=== PATIENT | female | born 1990 | race African-American/Black ===

== ENCOUNTER 2023-11-13 11:13 | Emergency (ER) | payer SELFPAY ==
[2023-11-13 12:42] LABS: Absolute Basophils 0.1 K/uL (0-0.5); Absolute Eosinophils 0.3 K/uL (0-0.5); Absolute Lymphocytes (CBC) 4.7 K/uL (0.7-4.9); Absolute Monocytes 0.6 K/uL (0.1-1.3); Absolute Neutrophil 4.7 K/uL (1.8-8.0); Basophils % 0.7 % (0-1.3); Hematocrit 39.2 % (36.0-45.0); Hemoglobin 13.2 g/dL (12.0-15.0); Lymphocytes % 45.4 % (15.3-44.8); MCH 31.3 pg (27.0-35.0); MCHC 33.6 g/dL (32.0-36.0); MCV 93.2 fL (80-100); MPV 7.5 fL (7.6-11.3); Monocytes % 5.7 % (3.3-12.3); Neutrophils % 45.2 % (41.7-73.7); Platelets 210 thou/uL (152-406); RBC Red Blood Cell Count 4.21 M/uL (3.86-4.86); Red Cell Distribution Width 14.8 % (12.1-15.2)
[2023-11-13 12:51] LABS: ALT/SGPT 15 U/L (13-56); Albumin 3.8 g/dL (3.4-5.0); Albumin/Globulin Ratio 1.1 (1.1-1.8); Alkaline Phosphatase 69 U/L (45-117); Anion Gap 3.9 mEq/L (5.0-15.0); BUN Blood Urea Nitrogen 10 mg/dL (7-18); Bicarbonate 28 mEq/L (21-32); Bilirubin Total 0.8 mg/dL (0.2-1.0); Globulin 3.5 g/dL (2.3-3.5); Glomerular Filtration Rate 97 ml/min (=/>90); Glucose Level 91 mg/dL (74-106); Potassium 3.9 mEq/L (3.5-5.1); Protein, Total 7.3 g/dL (6.4-8.2); Sodium Level 138 mEq/L (136-145)
[2023-11-13 12:54] LABS: AST/SGOT < 10 U/L (15-37)
[2023-11-13 13:08] LABS: Specific Gravity 1.033 (1.005-1.030); Specific Gravity > 1.030 (1.005-1.030); Sqamous Epithelial <5 /HPF (None Seen); Urine Bacteria <20 /HPF (<20); Urine Bilirubin NEGATIVE (Negative); Urine Blood Negative (Negative); Urine Clarity Clear (Clear); Urine Color Yellow (Yellow); Urine Culture Reflex Order NOT NEEDED; Urine Glucose NEGATIVE (Negative); Urine Ketones NEGATIVE (Negative); Urine Microscopic Reflex YN ORDER UMIC; Urine Mucus 2+ /HPF (None Seen); Urine Nitrite NEGATIVE (Negative); Urine Protein TRACE (Negative); Urine Urobilinogen 1+ (Normal); Urine WBC <5 /HPF (<5); Urine pH 6.5 (5.0-7.0)
--- NOTE | 2023-11-13 13:19 | RAD REPORT ---
EXAM DESCRIPTION: US - Extremity Nonvascular Limited - 11/13/2023 12:21 pm CLINICAL HISTORY: Pain;Swelling COMPARISON: No comparisons TECHNIQUE: Sonographic grayscale and color flow images of the right breast were obtained. FINDINGS: Heterogeneous dense fibroglandular tissue in the evaluated retroareolar region. Numerous c ystic lesions are present, including a complex 5 mm cyst most superiorly, and 2 adjacent anechoic cys ts, largest measuring 9 mm. No suspicious masses or abnormal shadowing. IMPRESSION: Dense stroma and some cysts, may represent sequelae of fibrocystic disease. No focal inf lammatory process is appreciated. Close clinical follow-up is recommended. BI-RADS: 2, benign findings. ResultCode: B
--- NOTE | 2023-11-13 14:23 | ER ---
Nurse's Notes [facility] Radha Name: August Age: 32 yrs Sex: Female : 1990 Arrival Date: 11/13/2023 Time: 11:13 Bed 9 Private MD: Diagnosis: Disorder of breast, unspecified-LUMP Presentation: 11/12 11:17 Chief complaint: Patient states: "I've had a lump under my right breast for the past mb9 5-6 years. I've had it drained and it got infected years ago. It's painful.". Coronavirus screen: Vaccine status: Patient reports receiving the 2nd dose of the covid vaccine. Ebola Screen: No symptoms or risks identified at this time. Initial Sepsis Screen: Does the patient meet any 2 criteria? No. Patient's initial sepsis screen is negative. Does the patient have a suspected source of infection? No. Patient's initial sepsis screen is negative. Risk Assessment: Do you want to hurt yourself or someone else? Patient reports no desire to harm self or others. Onset of symptoms was 2019. 11:17 Method Of Arrival: Ambulatory 9 11:17 Acuity: NIALL 4 mb9 Triage Assessment: 11:20 General: Appears in no apparent distress. Behavior is calm, cooperative. Pain: mb9 Complains of pain in right breast. EENT: No signs and/or symptoms were reported regarding the EENT system. Neuro: Wong Agitation-Sedation Scale (RASS): 0 - Alert and Calm Level of Consciousness is awake, alert, obeys commands, Oriented to person, place, time, situation, Appropriate for age. Cardiovascular: Patient's skin is warm and dry. Respiratory: Airway is patent Respiratory effort is even, unlabored, Respiratory pattern is regular, symmetrical. GI: No signs and/or symptoms were reported involving the gastrointestinal system. : No signs and/or symptoms were reported regarding the genitourinary system. Derm: Skin is pink, warm \\T\\ dry. Musculoskeletal: Range of motion: intact in all extremities. 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 - Infectious Disease History:: Denies. - Social history:: Smoking status: Patient denies any tobacco usage or history of. - Family history:: not pertinent. Screenin:[facility] ED Fall Risk Assessment (Adult) History of falling in the last 3 months, ll1 including since admission No falls in past 3 months (0 pts) Confusion or Disorientation No (0 pts) Intoxicated or Sedated No (0 pts) Impaired Gait No (0 pts) Mobility Assist Device Used No (0 pt) Altered Elimination No (0 pt) Score/Fall Risk Level 0 - 2 = Low Risk Maintained a safe environment, Hourly rounding (assess needs \\T\\ fall precautionary measures) done. Abuse screen: Denies threats or abuse. Nutritional screening: No deficits noted. Tuberculosis screening: No symptoms or risk factors identified. Assessment: 11:38 Reassessment: No changes from previously documented assessment. Patient and/or family ll1 updated on plan of care and expected duration. Pain level reassessed. To US via wheelchair. 12:46 Reassessment: Patient and/or family updated on plan of care and expected duration. Pain rs5 level reassessed. Patient is alert, oriented x 3, equal unlabored respirations, skin warm/dry/pink. 13:55 Reassessment: Patient and/or family updated on plan of care and expected duration. Pain rs5 level reassessed. Patient is alert, oriented x 3, equal unlabored respirations, skin warm/dry/pink. Patient states feeling better. Patient states symptoms have improved. 14:34 Reassessment: No changes from previously documented assessment. rs5 Vital Signs: 11:17 BP 107 / 75; Pulse 88; Resp 16; Temp 97.5; Pulse Ox 100% on R/A; Weight 52.16 kg; mb9 Height 5 ft. 2 in. ; Pain 8/10; 12:46 BP 110 / 77; Pulse 77; Resp 17; Pulse Ox 99% on R/A; rs5 14:34 BP 107 / 74; Pulse 73; Resp 17; Pulse Ox 99% on R/A; rs5 11:17 Body Mass Index 21.03 (52.16 kg, 157.48 cm) [facility] 11:17 Pain Scale: Adult mb9 ED Course: 11:14 Patient arrived in ED. mr 11:14 Aureliano Dubose MD is Attending Physician. hank 11:19 Triage completed. mb9 11:19 Arm band placed on. mb9 11:39 Patient has correct armband on for positive identification. Bed in low position. Call ll1 light in reach. Cardiac monitoring not applicable on this patient. 12:14 Mauricio Blue, RN is Primary Nurse. rs5 12:14 US Extrmty Nonvasular Limited: right breast In Process Unspecified. EDMS 12:18 Inserted saline lock: 22 gauge in right antecubital area, using aseptic technique. rs5 12:18 No provider procedures requiring assistance completed. rs5 14:21 George Borden MD is Referral Physician. hank 14:35 IV discontinued, intact, bleeding controlled, No redness/swelling at site. Pressure rs5 dressing applied. Administered Medications: 12:20 Drug: NS 0.9% IV 1000 ml IV at 1 bolus Per protocol; 1000 mL bolus Route: IV; Rate: 1 rs5 bolus; Site: right antecubital; 12:47 Follow up: Response: No adverse reaction rs5 13:31 Follow up: IV Status: Completed infusion; IV Intake: 999ml rs5 Medication: 12:46 VIS not applicable for this client. rs5 Intake: 13:31 IV: 999ml; Total: 999ml. rs5 Outcome: 14:21 Discharge ordered by . hank 14:35 Discharged to home ambulatory, rs5 14:35 Condition: stable 14:35 Discharge instructions given to patient, family, Instructed on discharge instructions, follow up and referral plans. no driving heavy equipment, Demonstrated understanding of instructions, follow-up care, medications, Prescriptions given X 2, 14:35 Patient left the ED. rs5 Signatures: Dispatcher [employer] EDAZ Aureliano Dubose MD MD cha Rivera, Mary, Reg Reg mr ElizondoZaire RN RN ll1 Jenni Dickey RN RN mb9 Mauricio Blue, AURORA RN rs5
--- NOTE | 2023-11-13 14:23 | EDPHYS ---
Physician Documentation [facility] Name: August Age: 32 yrs Sex: Female : 1990 Arrival Date: 11/13/2023 Time: 11:13 Bed 9 Private MD: RADHA Physician Aureliano Dubose HPI: 11/12 14:06 This 32 yrs old Black Female presents to ER via Ambulatory with complaints of Breast hank Lump. 14:06 the patient presents with a swollen area of the right breast. Description: The affected hank area is small, confluent. Onset: The symptoms/episode began/occurred 60 day(s) ago. Possible cause(s): unknown. Associated signs and symptoms: The patient has no apparent associated signs or symptoms. Severity of symptoms: At their worst the symptoms were mild, in the emergency department the symptoms are unchanged. The patient has experienced similar episodes in the past, multiple times. 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 - Infectious Disease History:: Denies. - Social history:: Smoking status: Patient denies any tobacco usage or history of. - Family history:: not pertinent. ROS: 14:06 Constitutional: Negative for fever, chills, and weight loss, Eyes: Negative for injury, hank pain, redness, and discharge, ENT: Negative for injury, pain, and discharge, Neck: Negative for injury, pain, and swelling, Cardiovascular: Negative for chest pain, palpitations, and edema, Respiratory: Negative for shortness of breath, cough, wheezing, and pleuritic chest pain, Abdomen/GI: Negative for abdominal pain, nausea, vomiting, diarrhea, and constipation, Back: Negative for injury and pain, : Negative for injury, bleeding, discharge, and swelling, MS/Extremity: Negative for injury and deformity, Neuro: Negative for headache, weakness, numbness, tingling, and seizure, Psych: Negative for depression, anxiety, suicide ideation, homicidal ideation, and hallucinations, Allergy/Immunology: Negative for hives, rash, and allergies, Endocrine: Negative for neck swelling, polydipsia, polyuria, polyphagia, and marked weight changes, Hematologic/Lymphatic: Negative for swollen nodes, abnormal bleeding, and unusual bruising, 14:06 Skin: Positive for swelling, of the right breast, Exam: 14:06 Constitutional: This is a well developed, well nourished patient who is awake, alert, hank and in no acute distress. Head/Face: Normocephalic, atraumatic. Eyes: Pupils equal round and reactive to light, extra-ocular motions intact. Lids and lashes normal. Conjunctiva and sclera are non-icteric and not injected. Cornea within normal limits. Periorbital areas with no swelling, redness, or edema. ENT: Nares patent. No nasal discharge, no septal abnormalities noted. Tympanic membranes are normal and external auditory canals are clear. Oropharynx with no redness, swelling, or masses, exudates, or evidence of obstruction, uvula midline. Mucous membranes moist. Chest/axilla: Normal chest wall appearance and motion. Nontender with no deformity. No lesions are appreciated. Cardiovascular: Regular rate and rhythm with a normal S1 and S2. No gallops, murmurs, or rubs. Normal PMI, no JVD. No pulse deficits. Respiratory: Lungs have equal breath sounds bilaterally, clear to auscultation and percussion. No rales, rhonchi or wheezes noted. No increased work of breathing, no retractions or nasal flaring. Abdomen/GI: Soft, non-tender, with normal bowel sounds. No distension or tympany. No guarding or rebound. No evidence of tenderness throughout. Back: No spinal tenderness. No costovertebral tenderness. Full range of motion. Skin: Warm, dry with normal turgor. Normal color with no rashes, no lesions, and no evidence of cellulitis. MS/ Extremity: Pulses equal, no cyanosis. Neurovascular intact. Full, normal range of motion. Neuro: Awake and alert, GCS 15, oriented to person, place, time, and situation. Cranial nerves II-XII grossly intact. Motor strength 5/5 in all extremities. Sensory grossly intact. Cerebellar exam normal. Normal gait. Psych: Awake, alert, with orientation to person, place and time. Behavior, mood, and affect are within normal limits. 14:06 Chest/axilla: Inspection: normal, Palpation: tenderness, that is mild, of the right breast, Axilla: are normal, Breasts: mass(es), that is small, in the right breast, that is tender, that is freely movable, nipple discharge, is not appreciated, rash, is not appreciated, swelling, that is mild tenderness, that is mild Lymph nodes: lymphadenopathy is not appreciated, Vital Signs: 11:17 BP 107 / 75; Pulse 88; Resp 16; Temp 97.5; Pulse Ox 100% on R/A; Weight 52.16 kg; mb9 Height 5 ft. 2 in. ; Pain 8/10; 12:46 BP 110 / 77; Pulse 77; Resp 17; Pulse Ox 99% on R/A; rs5 14:34 BP 107 / 74; Pulse 73; Resp 17; Pulse Ox 99% on R/A; rs5 11:17 Body Mass Index 21.03 (52.16 kg, 157.48 cm) mb9 11:17 Pain Scale: Adult mb9 MDM: 11:15 Patient medically screened. [facility] 14:09 Differential diagnosis: abscess, allergic reaction, cellulitis. Data reviewed: vital [facility] signs, nurses notes, lab test result(s), radiologic studies, ultrasound. Consideration of Admission/Observation Patient was admitted/placed on observation. I considered the following discharge prescriptions or medication management in the emergency department Medications were administered in the Emergency Department. See MAR. Independent interpretation of the following test(s) in the Emergency Department Radiology Department Ultrasound: My interpretation is BREAST USG. Test considered but Not performed: MRI: NO MRI. Historians other than the Patient: PT WELL INFORMED. Care significantly affected by the following chronic conditions: SEIZURE, INVERTED NIPPLE. 11/12 11:31 Order name: CBC with Diff; Complete Time: 13:41 [facility] 11/12 11:31 Order name: Comprehensive Metabolic Panel; Complete Time: 13:41 [facility] 11/12 11:31 Order name: Urinalysis w/ reflexes; Complete Time: 13:41 [facility] 11/12 11:31 Order name: PREGU; Complete Time: 13:41 [facility] 11/12 11:31 Order name: US Extrmty Nonvasular Limited: right breast; Complete Time: 13:41 [facility] Administered Medications: 12:20 Drug: NS 0.9% IV 1000 ml IV at 1 bolus Per protocol; 1000 mL bolus Route: IV; Rate: 1 rs5 bolus; Site: right antecubital; 12:47 Follow up: Response: No adverse reaction rs5 13:31 Follow up: IV Status: Completed infusion; IV Intake: 999ml rs5 Disposition Summary: 11/13/23 14:21 Discharge Ordered Notes: Location: Home hank Problem: new hank Symptoms: have improved hank Condition: Stable hank Diagnosis - Disorder of breast, unspecified - LUMP hank Followup: hank - With: Private Physician - When: 2 - 3 days - Reason: Recheck today's complaints, Continuance of care, Re-evaluation by your physician Followup: hank - With: George Borden MD - When: 2 - 3 days - Reason: Recheck today's complaints, Re-evaluation by your physician Discharge Instructions: - Discharge Summary Sheet hank - Breast Cyst [facility] Forms: - Medication Reconciliation Form hank - Antibiotic Education hank - Prescription Opioid Use hank - Patient Portal Instructions [facility] - Leadership Thank You Letter [facility] Prescriptions: - acetaminophen-codeine 300-30 mg Oral tablet - take 2 tablet ORAL route every 6 hours PRN PAIN; 18 tablet; Refills: 0, Product [facility] Selection Permitted - Motrin IB 200 mg Oral tablet - take 2 tablet ORAL route every 6 hours As needed as needed with food; 30 hank tablet; Refills: 0, Product Selection Permitted Signatures: Dispatcher [employer] EDAureliano Riojas MD MD cha Lewis, Lynsay, RN RN ll1 Jenni Dickey, RN RN mb9 Mauricio Blue, RN RN rs5 Corrections: (The following items were deleted from the chart) 11:31 11:31 CBC+H.LAB.BRZ ordered. EDMS EDMS 11:31 11:31 COMPREHENSIVE METABOLIC PANEL+C.LAB.BRZ ordered. EDMS EDMS 11:31 11:31 Urinalysis+U.LAB.BRZ ordered. EDMS EDMS 11:31 11:31 Test, Urine+UC.LAB.BRZ ordered. EDMS EDMS 11:31 11:31 Extrmty Nonvasular Limited+US.RAD.BRZ ordered. EDMS EDMS
[2023-11-13 14:41] VITALS: TEMP 97.5; O2SAT 99
[2023-11-13 15:01] VITALS: BP 107/74
== END 2023-11-13 14:35 | disposition home or self-care (01) ==
LOC: ER 11:13
DX: N63.10 Unspecified lump in the right breast, unspecified quadrant (principal)
CPT/HCPCS: 36415; 76882; 80053; 81001; 81025; 85025

== ENCOUNTER 2024-08-16 18:54 | Emergency (ER) | payer SELFPAY ==
[2024-08-16 20:43] LABS: Absolute Basophils 0.1 K/uL (0-0.5); Absolute Eosinophils 0.3 K/uL (0-0.5); Absolute Lymphocytes (CBC) 4.4 K/uL (0.7-4.9); Absolute Monocytes 0.5 K/uL (0.1-1.3); Absolute Neutrophil 4.1 K/uL (1.8-8.0); Basophils % 0.9 % (0-1.3); Eosinophils % 3.6 % (0-4.4); Hematocrit 39.1 % (36.0-45.0); Hemoglobin 13.1 g/dL (12.0-15.0); Lymphocytes % 46.6 % (15.3-44.8); MCH 30.9 pg (27.0-35.0); MCHC 33.4 g/dL (32.0-36.0); MCV 92.6 fL (80-100); MPV 7.6 fL (7.6-11.3); Monocytes % 5.5 % (3.3-12.3); Neutrophils % 43.4 % (41.7-73.7); Nucleated Red Blood Cells % 0.2 % (0-0); Platelets 227 thou/uL (152-406); RBC Red Blood Cell Count 4.22 M/uL (3.86-4.86); Red Cell Distribution Width 14.6 % (12.1-15.2)
[2024-08-16 21:00] LABS: AST/SGOT 14 U/L (15-37); Albumin 3.9 g/dL (3.4-5.0); Albumin/Globulin Ratio 1.1 (1.1-1.8); Alkaline Phosphatase 70 U/L (45-117); Anion Gap 7.5 mEq/L (5.0-15.0); BUN Blood Urea Nitrogen 16 mg/dL (7-18); Bicarbonate 24 mEq/L (21-32); Bilirubin Total 0.9 mg/dL (0.2-1.0); Globulin 3.4 g/dL (2.3-3.5); Glomerular Filtration Rate 85 ml/min (=/>90); Glucose Level 116 mg/dL (74-106); Potassium 3.5 mEq/L (3.5-5.1); Protein, Total 7.3 g/dL (6.4-8.2); Sodium Level 137 mEq/L (136-145)
[2024-08-16 21:01] LABS: ALT/SGPT < 14 U/L (13-56)
[2024-08-16 21:20] LABS: Band Neutrophils 1 % (0-1); Differential Total Cells Count 100; Eosinophils 5 % (0-3); Lymphocytes 40 % (15-42); Monocytes 1 % (0-10); Reactive Lymphocytes 9 %; Segmented Neutrophils 44 % (40-80)
[2024-08-16 21:21] LABS: Blood Morphology Comment NOT SEEN (NOT SEEN); Platelet Estimate ADEQ
--- NOTE | 2024-08-17 01:16 | ER ---
Nurse's Notes [facility] Mariza Name: Marissa Dumont Age: 33 yrs Sex: Female : 1990 Arrival Date: 08/16/2024 Time: 18:54 Bed 9 Private MD: Diagnosis: Disorder of breast, unspecified Presentation: 08/16 19:09 Chief complaint: Patient states: LUMPS TO BILATERAL BREASTS. PT STATES THAT SHE cm10 COMPLETED ANTIBIOTICS AND HAS DEVELOPED MORE LUMPS. Coronavirus screen: Client denies travel out of the [place] in the last 14 days. Ebola Screen: Patient denies travel to an Ebola-affected area in the 21 days before illness onset. No symptoms or risks identified at this time. Initial Sepsis Screen: Does the patient meet any 2 criteria? HR > 90 bpm. Does the patient have a suspected source of infection? No. Patient's initial sepsis screen is negative. Risk Assessment: Do you want to hurt yourself or someone else? Patient reports no desire to harm self or others. Onset of symptoms was August 16, 2024. 19:09 Method Of Arrival: Ambulatory cm10 19:09 Acuity: NIALL 3 cm10 Triage Assessment: 19:12 General: Appears in no apparent distress. uncomfortable, Behavior is calm, cooperative. cm10 Pain: Complains of pain in right breast and left breast Pain currently is 8 out of 10 on a pain scale. Neuro: No deficits noted. Level of Consciousness is awake, alert, obeys commands, Oriented to person, place, time, situation, Appropriate for age. Respiratory: No deficits noted. Airway is patent Respiratory effort is even, unlabored, Respiratory pattern is regular, symmetrical. Historical: - Allergies: 19:11 Amoxicillin; cm10 - PMHx: 19:11 inverted nipple; Seizure; cm10 - PSHx: 19:11 3 heart surgeries; Cyst removal; cm10 - Immunization history:: Adult Immunizations up to date. - Infectious Disease History:: Denies. - Social history:: Smoking status: Reported history of juuling and/or vaping. Screenin:58 [facility] ED Fall Risk Assessment (Adult) History of falling in the last 3 months, le1 including since admission No falls in past 3 months (0 pts) Confusion or Disorientation No (0 pts) Intoxicated or Sedated No (0 pts) Impaired Gait No (0 pts) Mobility Assist Device Used No (0 pt) Altered Elimination No (0 pt) Score/Fall Risk Level 0 - 2 = Low Risk Oriented to surroundings, Maintained a safe environment, Educated pt \T\ family on fall prevention, incl call for assistance when getting out of bed, Assessed \T\ reinforced patient's understanding of fall precautions, Hourly rounding (assess needs \T\ fall precautionary measures) done, Used ambulatory aids as needed (educated on \T\ assisted with). Abuse screen: Denies threats or abuse. Denies injuries from another. Nutritional screening: No deficits noted. Tuberculosis screening: No symptoms or risk factors identified. Assessment: 20:58 General: Appears in no apparent distress. comfortable. Pain: Complains of pain in le1 chest. Neuro: No deficits noted. Cardiovascular: No deficits noted. Respiratory: No deficits noted. GI: No deficits noted. : No deficits noted. EENT: No deficits noted. Derm: No deficits noted. Musculoskeletal: No deficits noted. 08/17 01:52 Reassessment: Patient appears in no apparent distress at this time. No changes from lg3 previously documented assessment. Patient and/or family updated on plan of care and expected duration. Pain level reassessed. Patient is alert, oriented x 3, equal unlabored respirations, skin warm/dry/pink. Vital Signs: 08/16 19:09 BP 124 / 86; Pulse 91; Resp 15; Temp 98.5; Pulse Ox 100% ; Weight 52.16 kg; Height 5 cm10 ft. 10 in. ; Pain 8/10; 08/17 01:52 BP 121 / 77; Pulse 84; Resp 16 S; Pulse Ox 100% on R/A; lg3 08/16 19:09 Body Mass Index 16.50 (52.16 kg, 177.8 cm) cm10 08/16 19:09 Pain Scale: Adult cm10 ED Course: 08/16 18:56 Patient arrived in ED. mr 18:59 Aureliano Og PA is PHCP. cp 18:59 Yancy Ruby MD is Attending Physician. cp 19:11 Triage completed. cm10 19:12 Arm band placed on right wrist. Patient placed in waiting room. cm10 20:20 Tamela Mccollum, RN is Primary Nurse. le1 20:37 CMP Sent. vk 20:37 CBC with Diff Sent. vk 20:37 Test, Serum Sent. vk 20:37 Initial lab(s) drawn, by me, by EMS personnel. vk 20:37 Inserted saline lock: 20 gauge in right antecubital area, using aseptic technique. vk Blood collected. Flushed with 10 mL NS. 20:59 Patient has correct armband on for positive identification. Bed in low position. Call le1 light in reach. Side rails up X2. Provided Education on: informed to use call light if needing assistance.. 23:18 Assisted provider with: breast exam. lg3 23:50 US Extrmty Nonvasular Limited: bilateral breast In Process Unspecified. EDMS 23:54 Aureliano Dubose MD is Attending Physician. cp 08/17 01:16 Ascencion Ochoa MD is Referral Physician. cp 01:52 IV discontinued, intact, bleeding controlled, No redness/swelling at site. Pressure lg3 dressing applied. Administered Medications: No medications were administered Medication: 01:52 VIS not applicable for this client. lg3 Outcome: 01:16 Discharge ordered by MD. cp 01:52 Discharged to home ambulatory, lg3 01:52 Condition: stable 01:52 Discharge instructions given to patient, Instructed on discharge instructions, follow up and referral plans. medication usage, Demonstrated understanding of instructions, follow-up care, medications, Prescriptions given X 1, 01:53 Patient left the ED. lg3 Signatures: Dispatcher [employer] EDTN Jenni Lopez, Reg Reg mr Aureliano Og, Kaley Amos cp, RN RN lg3 Latha Valera, RN RN [email or web address] Josiane Gordon LaKendric, RN RN le1
--- NOTE | 2024-08-17 01:16 | EDPHYS ---
Physician Documentation [facility] [place] Name: Marissa Dumont Age: 33 yrs Sex: Female : 1990 Arrival Date: 08/16/2024 Time: 18:54 Bed 9 Private MD: ED Physician Aureliano Dubose HPI: 08/16 19:20 This 33 yrs old Black Female presents to ER via Ambulatory with complaints of Chest cp problem, Breast Lump. 19:20 Patient is a 33-year-old female who presents to the emergency department with cp complaints and concern for bilateral breast lumps. Patient reports she has had these lumps in her breast for a while but feels that the have enlarged and in the past these have become infected causing sepsis and hospitalization when she lived in [place]. Patient has recently moved to the area and has not had follow-up for these concerns and presents to the emergency department today with concern that she may be septic from these breast lumps. Historical: - Allergies: 19:11 Amoxicillin; cm10 - PMHx: 19:11 inverted nipple; Seizure; cm10 - PSHx: 19:11 3 heart surgeries; Cyst removal; cm10 - Immunization history:: Adult Immunizations up to date. - Infectious Disease History:: Denies. - Social history:: Smoking status: Reported history of juuling and/or vaping. ROS: 19:25 Constitutional: history per hpi cp 19:25 Constitutional: Negative for body aches, chills, fever, cp 19:25 Cardiovascular: Negative for chest pain, palpitations, 19:25 Respiratory: Negative for cough, shortness of breath, wheezing, 19:25 Abdomen/GI: Negative for abdominal pain, vomiting, diarrhea, constipation, 19:25 Neuro: Negative for altered mental status, dizziness, headache, weakness, 19:25 All other systems are negative, Exam: 19:30 Constitutional: The patient appears in no acute distress, alert, awake, cp non-diaphoretic, non-toxic, well developed, well nourished, anxious, 19:30 Head/Face: Normocephalic, atraumatic. cp 19:30 Eyes: Periorbital structures: appear normal, Conjunctiva: normal, no exudate, no injection, Sclera: no appreciated abnormality, Lids and lashes: appear normal, bilaterally, 19:30 ENT: External ear(s): are unremarkable, Nose: is normal, Mouth: Lips: moist, Oral mucosa: moist, Posterior pharynx: Airway: no evidence of obstruction, patent, 19:30 Neck: ROM/movement: is normal, is supple, without pain, no range of motions limitations, 19:30 Cardiovascular: Rate: normal, Rhythm: regular, Edema: is not appreciated, JVD: is not appreciated, 19:30 Respiratory: the patient does not display signs of respiratory distress, Respirations: normal, no use of accessory muscles, no retractions, labored breathing, is not present, Breath sounds: are clear throughout, no decreased breath sounds, no stridor, no wheezing, 19:30 Abdomen/GI: Inspection: abdomen appears normal, 19:30 Back: pain, is absent, ROM is normal, 19:30 Skin: cellulitis, is not appreciated, no rash present. 19:30 Neuro: Orientation: to person, place \T\ time. Mentation: is normal, Motor: moves all fours, strength is normal, 19:52 ECG was reviewed by the Attending Physician. cp 23:00 Chest/axilla: Breasts: right nipple inverted. right upper outer breast area tenderness, cp palpable non-discreet mass. left breast palpable, firm mass upper breast. overlying skin warm, dry with no signs erythema, Vital Signs: 19:09 BP 124 / 86; Pulse 91; Resp 15; Temp 98.5; Pulse Ox 100% ; Weight 52.16 kg; Height 5 cm10 ft. 10 in. ; Pain 8/10; 08/17 01:52 BP 121 / 77; Pulse 84; Resp 16 S; Pulse Ox 100% on R/A; lg3 08/16 19:09 Body Mass Index 16.50 (52.16 kg, 177.8 cm) cm10 08/16 19:09 Pain Scale: Adult cm10 MDM: 08/16 19:19 Medical Screening Exam initiated cp 08/17 01:15 Data reviewed: vital signs, nurses notes, lab test result(s), EKG, radiologic studies, cp ultrasound, and as a result, I will discharge patient. 01:15 Differential Diagnosis abscess, sepsis, cellulitis, carcinoma, cyst. Counseling: I had cp a detailed discussion with the patient and/or guardian regarding the historical points, exam findings, and any diagnostic results supporting the discharge/admit diagnosis, lab results, radiology results, the need for outpatient follow up, for definitive care, a general surgeon. 08/16 19:13 Order name: CBC with Diff; Complete Time: 23:09 cp 08/16 19:13 Order name: CMP; Complete Time: 23:09 cp 08/16 23:09 Interpretation: Normal except: CL 109; GLUC 116; GFR 85; AST 14. cp 08/16 20:50 Order name: Manual Differential; Complete Time: 23:09 EDMS 08/16 23:09 Order name: US Extrmty Nonvasular Limited: bilateral breast cp 08/16 19:14 Order name: EKG; Complete Time: 19:14 cp 08/16 19:13 Order name: IV; Complete Time: 20:37 cp 08/16 19:14 Order name: EKG - Nurse/Tech; Complete Time: 20:49 cp EC/29 19:52 Rate is 58 beats/min. Rhythm is regular. KS interval is normal. QRS interval is normal. cp QT interval is normal. T waves are Inverted in leads aVR, V2. Interpreted by me. Reviewed by me. Administered Medications: No medications were administered Disposition Summary: 08/17/24 01:16 Discharge Ordered Notes: Location: Home cp Problem: an ongoing problem cp Symptoms: have improved cp Condition: Stable cp Diagnosis - Disorder of breast, unspecified cp Followup: cp - With: Ascencion Ochoa MD - When: 2 - 3 days - Reason: breast mass Discharge Instructions: - Discharge Summary Sheet cp - Breast Biopsy cp - Breast Biopsy, Care After cp - Breast Tenderness cp - Breast Biopsy, Pujy-oh-[id number] cp - Breast Ultrasound cp - Form - Excuse from Work, School, or Physical Activity cp Forms: - Medication Reconciliation Form cp - Antibiotic Education cp - Prescription Opioid Use cp - Patient Portal Instructions cp - Leadership Thank You Letter cp - Work release form vk Prescriptions: - Ibuprofen 600 mg Oral Tablet - take 1 tablet ORAL route every 6 hours As needed take with food; 30 tablet; cp Refills: 0, Product Selection Permitted Addendum: 08/19/2024 15:34 Co-signature as Attending Physician, Aureliano Dubose MD I agree with the assessment and c chairez plan of care. Signatures: Dispatcher [employer] Aureliano Jane MD MD cha Page, Corey, PA PA cp Martinez, Latha, RN RN cm10 Corrections: (The following items were deleted from the chart) 08/16 19:14 19:14 CBC+H.LAB.BRZ ordered. EDMS EDMS 19: 19:14 COMPREHENSIVE METABOLIC PANEL+C.LAB.BRZ ordered. EDMS EDMS 19: 19:14 Urinalysis W/Microscopic+U.LAB.BRZ ordered. EDMS EDMS 19: 19:14 TEST, SERUM+SC.LAB.BRZ ordered. EDMS EDMS
--- NOTE | 2024-08-17 01:28 | RAD REPORT ---
EXAM DESCRIPTION: Bilateral breast ultrasound. CLINICAL HISTORY: 33 years Female breast masses COMPARISON: None TECHNIQUE: Real-time sonography of the upper breast was performed bilaterally. FINDINGS: Examination of the right upper breast revealed multiple benign-appearing cystic findings measuring 1. 1 x 0.7 x 0.9 cm and 28 x 29 x 0.4 cm. No focal solid lesions are identified on the right. No abnormal thick walled fluid collections or evidence for breast abscess seen. Dense breast parenchymal tissue is noted. Examination of the left upper breast reveal 1.6 x .8 x 1.4 cm well-circumscribed hypoechoic solid les ion in the region of clinical suspicion. Doppler evaluation revealed predominantly peripheral lobe. The finding is most suspicious for benign fibroadenoma. No focal cystic lesions were seen on the left . No abnormal thick walled fluid collections or evidence for breast abscess seen.. IMPRESSION: No sonographic evidence for breast abscess or mastitis bilaterally. Benign right breast cysts. No fur ther follow-up of these findings needed. 1.6 hypoechoic solid lesion involving the upper mid left breast in the region of clinical suspicion. The finding is most suspicious for benign fibroadenoma however more aggressive etiology cannot entirely on the basis of this study. 6 month follow-up breast ultrasound would be needed to further c onfirm stability. Alternatively magnetic resonance study of the left breast versus ultrasound-guided needle aspiration/biopsy could be considered. Category 2 Electronically signed by: Clementine Cornejo MD 08/17/2024 01:21 AM CDT Due to temporary technical issues with the PACS/[employer] scribe reporting system, reports are being sign ed by the in-house radiologist without review as a courtesy to ensure prompt reporting the interpreting rad iologist is fully responsible for the content of the report. Transcribed Date/Time: 08/17/2024 1:28 AM
[2024-08-17 02:16] VITALS: TEMP 98.5; O2SAT 100
[2024-08-17 02:17] VITALS: BP 121/77
--- NOTE | 2024-08-18 11:21 | EKG ---
Test Date: 2024-08-16 Test Time: 19:46:23 Medicinal Chemist: [id number] MEASUREMENT RESULTS: Intervals: Rate: 58 CO: 128 QRSD: 78 QT: 426 QTc: 418 [place]: P: 57 CO: 128 QRS: 94 T: 50 INTERPRETIVE STATEMENTS: Sinus bradycardia Possible Left atrial enlargement Rightward axis Borderline ECG No previous ECG available for comparison Electronically Signed On 08-18-24 11:18:15 CDT by Stuart Garcia
== END 2024-08-17 01:53 | disposition home or self-care (01) ==
LOC: ER 18:54
DX: N64.89 Other specified disorders of breast (principal)
CPT/HCPCS: 36415; 76882; 80053; 85025; 93005